=== PATIENT | male | born 1970 | race Caucasian/White ===

== ENCOUNTER 2023-11-13 14:16 | Emergency (ER) | payer BC, SELFPAY ==
[2023-11-13 14:39] VITALS: BP 153/104; PULSE 107; RESP 16; TEMP 36.1; O2SAT 96; BMI 37.3
--- NOTE | 2023-11-13 14:48 | XR_ITS ---
Patient: CYDNEY BRAND Facility:?[facility] Patient ID:?[id number] Site Patient ID:?[id number]. Site :?[id number] Study:?XRay-Extremity Left KNEE 3V-11/13/2023 2:59:13 PM Ordering Physician:LUIS Final Report: INDICATION: Knee pain TECHNIQUE: Three views left knee FINDINGS: Normal alignment anterior soft tissue swelling. No large effusion. No acute fracture seen. Dictated by Columba Light MD @ 11/13/2023 4:25:58 PM Signed by:?Columba Light MD @11/13/2023 4:25:58 PM (Electronic Signature)
--- NOTE | 2023-11-13 15:45 | ED.LOWEXIN ---
HPI - Extremity Injury (Lower) General Date Seen: 11/13/23 Chief Complaint: Extremity Pain/Injury, Lower Stated Complaint: fall, Left knee pain Time Seen by Provider: 11/13/23 14:25 Source: patient and family Mode of arrival: ambulatory Limitations: no limitations History of Present Illness HPI Narrative: Patient fell by snowblower twisted left knee and pain in right buttock. Patient is a very nice gentleman who presents here with his , with a history of injury to just superior to his left patella. 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 And was really swollen, it looked a little bit weird according to his . No previous history of knee injury. She took a little ibuprofen but no other treatment. Place: home Relieving factors: nothing Exacerbating factors: nothing Related Data Home Medications Medication Instructions Recorded Confirmed No Known Home Medications 10/04/23 10/04/23 Allergies Allergy/AdvReac Type Severity Reaction Status Date / Time No Known Drug Allergies Allergy Verified 10/04/23 17:09 Review of Systems Status of ROS: Reports: 6 or more systems reviewed and unremarkable except as noted in History and below Exam Narrative: Exam Narrative: On examination he is well muscle, there is a little bit a defect just proximal to the left the tele, he really does not have a lot of knee extension, and this causes him pain. I knees otherwise normal. Patella is nontender as is knee joint there is no effusion, but he will fossa is normal his PT and posterior tibial pulses are normal sensations normal, the upper leg looks normal X-rays are done, can see no bony abnormality radiological over-read pending. I was uses the ultrasound there definitely is a defect within his quadriceps tendon distally. And a bunch of bleeding or fluid noted too. I suspect that he has either completely torn his quadriceps tendon or partial Const: Vital Signs, click to edit/add: Vital Signs - 24 hr 11/13/23 14:39 Temperature 97.0 F L Pulse Rate [Pulse Oximeter] 107 H Respiratory Rate 16 Blood Pressure [Ri ght Upper Arm] 153/104 H Pulse Oximetry 96 Oxygen Delivery Me thod Room Air Documenting provider has reviewed patient's vital signs: yes Course Course ED Course: I discussed with him we will make an appoint with Orthopedics will put him in a knee immobilizer, long toe walk I Tylenol and ibuprofen for the discomfort he does not want anything stronger on her discussion, ice, he knows that he has to leave the knee immobilizer on always and would go right back to sq 1 if he is flexes his knee. I do suspect that the he will need an MRI and likely surgery for this. Vital Signs Vital signs: Initial Vital Signs Temperature 97.0 F L 11/13/23 14:39 Temperature Source Temporal Artery Scan 11/13/23 14:39 Pulse Rate 107 H 11/13/23 14:39 Pulse Rhythm Regular 11/13/23 14:39 Respiratory Rate 16 11/13/23 14:39 Blood Pressure 153/104 H 11/13/23 14:39 Blood Pressure Mean 120 H 11/13/23 14:39 Blood Pressure Position Sitting 11/13/23 14:39 Pulse Oximetry 96 11/13/23 14:39 Oxygen Delivery Method Room Air 11/13/23 14:39 Vital Signs Temperature 97.0 F L 11/13/23 14:39 Pulse Rate 107 H 11/13/23 14:39 Respiratory Rate 16 11/13/23 14:39 Blood Pressure 153/104 H 11/13/23 14:39 Pulse Oximetry 96 11/13/23 14:39 Oxygen Delivery Method Room Air 11/13/23 14:39 Temperature 97.0 F L 11/13/23 14:39 Pulse Rate 107 H 11/13/23 14:39 Respiratory Rate 16 11/13/23 14:39 Blood Pressure 153/104 H 11/13/23 14:39 Pulse Oximetry 96 11/13/23 14:39 Oxygen Delivery Method Room Air 11/13/23 14:39 Discharge Plan Discharge Clinical Impression: Rupture of distal quadriceps tendon Patient Disposition: Home, Self-Care Condition: Stable Instructions: P.R.I.C.E. Treatment (ED), Tendon Rupture (ED) Additional Instructions: Home rest able to bear weight as tolerated if he is unable to bear weight, then we can use crutches. Most people however are able to do this. Icing is helpful, leaving the splint on 24 hours a day except when your cleaning yourself. Use of ibuprofen 800 mg p.o. t.i.d., maybe bolstered with acetaminophen, also. We will make an appointment to see orthopedics. Activity Level: No Restrictions Discharge Diet: Regular Prescriptions: No Action No Known Home Medications Follow Up/Referrals: Wilfrido Molina MD [Staff Physician] - Rasheed Snyder MD [Staff Physician] - Avi Gale MD [Staff Physician] - Provider,Not a Local [Primary Care Provider] - Stand Alone Forms: [employer] Info Instructions
== END 2023-11-13 15:27 | disposition home or self-care (01) ==
PROVIDERS: Emergency Provider Family Medicine
DX: S76.102A Unspecified injury of left quadriceps muscle, fascia and tendon, initial encounter (principal); X50.1XXA Overexertion from prolonged static or awkward postures, initial encounter; Y93.29 Activity, other involving ice and snow
CPT/HCPCS: 73562; 99283; 99284

== ENCOUNTER 2023-11-23 10:21 | Outpatient (CLI) | payer BC, SELFPAY | END 2023-11-23 10:22 | disposition home or self-care (01) | PROVIDERS: PCP Family Medicine; Visit Provider Family Medicine | DX: R03.0 Elevated blood-pressure reading, without diagnosis of hypertension (principal); Z13.220 Encounter for screening for lipoid disorders; Z12.5 Encounter for screening for malignant neoplasm of prostate | CPT/HCPCS: 80053; 80061; G0103 ==

== ENCOUNTER 2023-11-25 10:19 | Day surgery (SDC) | payer BC, SELFPAY ==
[2023-11-25] VITALS (16 sets, daily range): BP systolic 126–184; BP diastolic 88–132; PULSE 67–88; RESP 12–16; TEMP 36.5–36.8; O2SAT 96–100; BMI 37.3
--- NOTE | 2023-11-25 11:07 | SUR.PREOP ---
PT in room for crutch training. Pt provided crutches.
--- NOTE | 2023-11-25 11:21 | REH.PT ---
Pt seen pre-sx for left quad tendon repair. Pt was fitted for crutches and issued for home use. Instructed pt in gt level surfaces with 1 and 2 crutches, basic transfers and verbally instructed in stairs sequence and car transfers. Goals of PT were met. DC. No Charge.
[2023-11-25] MEDS: SODIUM CHLORIDE 0.9 % (FLUSH) 10 ML SYRINGE IVF (11:31)
[2023-11-25] MEDS: LACTATED RINGERS 1000 ML 1,000 ML 100 ML IV (11:31)
--- NOTE | 2023-11-25 11:44 | SUR.PREOP ---
TIME?OUT:?1144 PT/RN/MDA?VERIFICATION?OF?SURGICAL?SITE,?PROCEDURE,?AND?CONSENT OBTAINED?PRIOR?TO?INVASIVE?PROCEDURE.
[2023-11-25] MEDS: MIDAZOLAM HCL 1 MG/ML inj IVP (11:50)
[2023-11-25] MEDS: fentaNYL 100 MCG/2 ML inj IVP (11:50)
--- NOTE | 2023-11-25 12:35 | W.PM.NB ---
Nerve Block Nerve Block Time Seen by Provider: 11:50 Date Seen: 11/25/23 Type of block requested by surgeon for post-operative analgesia: femoral Side: left Time out performed: Yes Verification of patient name: Yes Verification of date of : Yes Site marking: site marked Name of person performing procedure: Pipo Dobson Continuous monitoring Was continuous monitoring of O2 sat, B/P, property assessment monitor, recorded every 15 minutes?: Yes Procedure Checklist: sterile prep, needles and gloves Ultrasound guided. Images saved: Yes Medications given in 5ml increments after negative aspiration: Ropivicaine %: 0.5 mL: 25 Needle gauge: 20 Decadron (mg): 10 Precedex (mcg): 25 Patient tolerated procedure well: Yes Additional comments: Injected in 5 mL increments after negative aspiration Block Charges Block Charge (with Pro Fee): Femoral Nerve Use of Ultrasound Machine for Block: Yes- US Guidance/pain block
--- NOTE | 2023-11-25 14:41 | P.ORPRC_ITS ---
Procedure Note Date of procedure: 11/25/23 Procedure: PREOPERATIVE DIAGNOSIS: Left knee quads tendon tear POSTOPERATIVE DIAGNOSIS: Left knee quads tendon tear NAME OF OPERATION: Left knee quads tendon repair SURGEON: Avi Gale MD ENDLESS TRACK VEHICLE SUPERVISOR: FOSTER Mack ANESTHESIA: Spinal plus femoral nerve block ESTIMATED BLOOD LOSS: 0 mL COMPLICATIONS: None SPECIMENS: None DRAINS: None PREOPERATIVE ANTIBIOTICS: Ancef 2 grams IMPLANTS: None INDICATIONS: The patient is a 53-year-old who fell recently sustaining the above diagnoses. Operative intervention was recommended. The risks, benefits and expected outcomes were discussed in detail. These included but were not limited to: Infection, bleeding, injury to blood vessel or nerve, venous thromboembolism. All questions were answered to their satisfaction. Use of an assistant guest services manager was necessary throughout the case for patient positioning and safety, soft tissue retraction, and closure. PROCEDURE: Spinal anesthesia was administered. The patient was placed supine on the operating table. The left lower extremity was prepped and draped in the usual sterile fashion. The limb was exsanguinated with the Lázaro bandage. The pneumatic tourniquet was inflated to 300 mmHg. A standard midline, anterior incision was made. Subcutaneous dissection was taken sharply to the quads tendon. Full-thickness medial and lateral flaps were elevated. The quads tendon was found to be ruptured completely from its in sertion on the proximal pole of the patella. The medial and lateral retinacula were completely torn as well. Hematoma was removed with the curette and rongeur. A modified Krackow stitch x2 with 1.7 mm FiberTape was placed in the quads tendon. We then drilled a Beath pin x3 through the patella from proximal to distal. We then passed suture tails through the patella using the Beath pins to shuttle them. One suture both medially and laterally and 2 suture tails through the central tunnel. We then advanced the patella proximally with a rake and tied the trans osseous FiberWire sutures over the distal pole of the patella. We closed the medial and lateral retinacula with a # 2 Stratafix suture. Subcutaneous tissues were closed with a 3-0 Stratafix and the skin with a running 3-0 Stratafix in a subcuticular fashion. Glue was used to seal the skin. A dry dressing and T scope brace were applied. Sponge and needle counts were correct x2. The patient tolerated the procedure well. There were no apparent complications. They were carefully transferred to the hospital bed and taken to the postanesthesia care unit in satisfactory condition. PLAN: The patient will be discharged to home. They may weightbear as tolerates with the brace locked in full extension. No range of motion will be allowed for the 1st 2 weeks postoperatively, then 0-30 degrees for 2 weeks, then 0-60 degrees x2 weeks, then 0-90 degrees. They will follow up in the office in 2 weeks for a wound check and to unlock the brace 0-30 degrees.
[2023-11-25] MEDS: LACTATED RINGERS 1000 ML 100 ML IV (15:00)
--- NOTE | 2023-11-25 15:32 | W.ANESCHARGE ---
Anesthesia Charges Start Date/Time Anesthesia Start Date: 11/25/23 Anesthesia Start Time: 13:24 Stop Date/Time Anesthesia Stop Date: 11/25/23 Anesthesia Stop Time: 14:56
== END 2023-11-25 16:30 | disposition home or self-care (01) ==
PROVIDERS: Visit Provider Orthopaedic Surgery
PROC: (CPT 27385; principal; 2023-11-25 12:30)
DX: S76.112A Strain of left quadriceps muscle, fascia and tendon, initial encounter (principal); G89.18 Other acute postprocedural pain
CPT/HCPCS: 27385; 01320; 64447; 76942; J1100; J2250; J2405; J2704; J2795; J3010; J3490; J7120; L1833